=== PATIENT | female | born 1945 | race Caucasian/White ===

== ENCOUNTER 2023-12-30 10:20 | Emergency (ER) | payer MEDICARE, OTHER, SELFPAY ==
[2023-12-30 10:34] VITALS: BP 118/72
--- NOTE | 2023-12-30 11:09 | ED.GENMED ---
History of Present Illness
<Karissa Thompson PA-C - Last Filed: 12/30/23 15:49>
General
Chief Complaint: Dizziness
Source: patient and family
Exam Limitations: none
Time Seen by Provider: 12/30/23 11:09
Nursing documentation reviewed up to this point in time: agreed with
Travel History
Have you had any contact with someone who has COVID-19?: No
Do you have any symptoms of coronavirus? Fever > 100 degrees, chills, cough, shortness of breath, sore throat, loss of taste or smell, muscle aches, or headache?: No
History of Present Illness
History of Present Illness:
78 y/o female with a PMH of HTN, diabetes, gastritis, psoriatic arthritis, presenting to the emergency department today with a bilateral temporal headache, and generalized dizziness for the the past 3 days. Patient states that her symptoms started
on Thursday when she was eating lunch, and she started to develop her headache, and feel nauseous. Patient states that she describes her dizziness as a 'wooziness' and feels that she feels unsteady on her feet when standing and feels like she might
throw up. She denies double vision, lightheadedness, syncopal episodes, falls, ambulatory dysfunction, f/c, chest pain, shortness of breath, back pain. Patient has tried extra strength tylenol and Dramamine for her symptoms without relief. Patient
states that [facility] who sent her home with a muscle relaxant.
Past History
<Karissa Thompson PA-C - Last Filed: 12/30/23 15:49>
Past History
ED Past Medical History: HTN and NIDDM
Social History
Tobacco: Non-smoker
Alcohol: None
Drug: None
Personal:
Living: with family
Employment: Other
Family History
Family History: Hypertension
Review of Systems
<Karissa Thompson PA-C - Last Filed: 12/30/23 15:49>
Review of Systems
All Other Systems: ROS reviewed and negative except as documented in HPI and ROS
Phy Exam
<Karissa Thompson PA-C - Last Filed: 12/30/23 15:49>
Physical Exam
Physical Exam:
General: Patient is well-appearing in no acute distress
Course
<Karissa Thompson PA-C - Last Filed: 12/30/23 15:49>
Orders/Labs/Results
Orders:
Orders
12/30/23 12:10
C-Reactive Protein Urgent
Comment: ADD ON
Complete Blood Count/With Diff Urgent
Comprehensive Metabolic Panel Urgent
Erythrocyte Sed Rate Urgent
Comment: ADD ON
12/30/23 12:20
CT Head W/o Iv Contrast Urgent
Comment:
Reason For Exam: headache, dizziness
12/30/23 12:38
0.9% Sodium Chloride 250 ml [Nss] 250 ml IV BOLUS
12/30/23 12:53
Add On- LAB Urgent
Tests Added?: CRP
12/30/23 13:01
0.9% Sodium Chloride 500 ml [Nss] 500 ml IV BOLUS
12/30/23 13:57
Add On- LAB Urgent
Tests Added?: ESR
Abnormal Lab Results
12/30/23
12:10
WBC 3.9 L 10^3/uL
(4.8-10.8)
RDW 15.9 H %
(11.5-14.5)
Absolute Lymphs (auto) 0.3 L 10^3/uL
(1.2-3.4)
Neutrophils % 78.8 H %
(42.2-75.2)
Lymphocytes % 8.0 L %
(20.5-51.1)
Creatinine 0.5 L mg/dL
(0.6-1.0)
Glucose 131 H mg/dl
(70-99)
C-Reactive Protein 62.40 H mg/L
(0.0-10.00)
12/30/23 12:10
12/30/23 12:10
Vital Signs
Initial and Last Documented VS:
Initial Vital Signs
Temp Pulse Resp BP Pulse Ox
98.2 F 83 16 118/72 98
12/30/23 10:34 12/30/23 10:34 12/30/23 10:34 12/30/23 10:34 12/30/23 10:34
Last Documented Vital Signs
Temp Pulse Resp BP Pulse Ox
98.2 F 76 14 108/65 97
12/30/23 10:34 12/30/23 14:45 12/30/23 14:45 12/30/23 14:00 12/30/23 14:45
<Jose Valdez, DO - Last Filed: 12/30/23 14:16>
Orders/Labs/Results
Orders:
Orders
12/30/23 12:10
C-Reactive Protein Urgent
Comment: ADD ON
Complete Blood Count/With Diff Urgent
Comprehensive Metabolic Panel Urgent
Erythrocyte Sed Rate Urgent
Comment: ADD ON
12/30/23 12:20
CT Head W/o Iv Contrast Urgent
Comment:
Reason For Exam: headache, dizziness
12/30/23 12:38
0.9% Sodium Chloride 250 ml [Nss] 250 ml IV BOLUS
12/30/23 12:53
Add On- LAB Urgent
Tests Added?: CRP
12/30/23 13:01
0.9% Sodium Chloride 500 ml [Nss] 500 ml IV BOLUS
12/30/23 13:57
Add On- LAB Urgent
Tests Added?: ESR
Abnormal Lab Results
12/30/23
12:10
WBC 3.9 L 10^3/uL
(4.8-10.8)
RDW 15.9 H %
(11.5-14.5)
Absolute Lymphs (auto) 0.3 L 10^3/uL
(1.2-3.4)
Neutrophils % 78.8 H %
(42.2-75.2)
Lymphocytes % 8.0 L %
(20.5-51.1)
Creatinine 0.5 L mg/dL
(0.6-1.0)
Glucose 131 H mg/dl
(70-99)
C-Reactive Protein 62.40 H mg/L
(0.0-10.00)
12/30/23 12:10
12/30/23 12:10
Vital Signs
Initial and Last Documented VS:
Initial Vital Signs
Temp Pulse Resp BP Pulse Ox
98.2 F 83 16 118/72 98
12/30/23 10:34 12/30/23 10:34 12/30/23 10:34 12/30/23 10:34 12/30/23 10:34
Last Documented Vital Signs
Temp Pulse Resp BP Pulse Ox
98.2 F 76 14 108/65 97
12/30/23 10:34 12/30/23 14:45 12/30/23 14:45 12/30/23 14:00 12/30/23 14:45
Clivelt;Karissa Thompson PA-C - Last Filed: 12/30/23 15:49>
MDM/Problems Addressed
Differential Diagnosis Includes:
Differentials include giant cell arteritis, tension headache, migraine headache, CVA, ocular migraine
MDM/Problems Addressed:
headache dizziness
Chronic conditions affecting care: DM, HTN and Other (psoriatic arthritis)
Acute Exacerbation and/or Progression of Chronic Illness: HTN
<Karissa Thompson PA-C - Last Filed: 12/30/23 15:49>
*Pulse Oximetry
Patient hypoxic: no
*Critical Care Note
Total Time (30-74mins, 75-104mins- exclusive of procedures): Not Applicable
Data Reviewed
Review of Other/Old Records Reveals: Records (Reviewed ER physician documentation from 11/17/2016) and Discharge Summary (no recent discharge summaries to review)
Source: patient and records
Prescriptions/Medications Considered But Not Given:
considered medication for pain control however patient states that she feels comfortable at this time and she feels more comfortable with fluids
<Karissa Thompson PA-C - Last Filed: 12/30/23 15:49>
Patient Management
Escalation/DeEscalation of care consider admission/obs:
Patient 78-year-old female with past medical history of diabetes, hypertension, psoriatic arthritis to the emergency department today with a bilateral temporal headache, and generalized dizziness for the the past 3 days. On exam, she does have
tenderness over the temporal artery region that she has no visual changes, no jaw pain. Her neurological exam is unremarkable. Her CBC and CMP were unremarkable. Her C-reactive protein is 62.40, raising concern for transfemoral arteries. Her ESR
is pending. I spoke to rheumatology she supply chain consultant rn observation via [facility] text who recommended to start patient on 6 mg of prednisone once daily and follow-up with vascular in 1 week to have a temporal artery biopsy and reassess. Patient is aware of
plan, she is medically stable for discharge.
ED Attending Note
<Karissa Thompson PA-C - Last Filed: 12/30/23 15:49>
-
Portions of this chart may have been created with voice recognition software.� Occasional wrong word or��sound alike� substitutions may have occurred due to the inherent limitations of voice recognition software.
<Jose Valdez DO - Last Filed: 12/30/23 14:16>
ED Attending Note
Patient seen and examined by attending physician: Yes
I performed the substantive portion of visit, reviewed & personally made and approve the management plan that is documented in note by myself or BRODY.: Yes
I performed a history and physical exam of patient and discussed management with resident, I reviewed resident's note and agree with documented findings and plan of care.: Yes
ED Attending Note:
I evaluated patient at bedside. The patient is currently well-appearing. She does feel somewhat improved after fluids were given. She does have some tenderness in the bitemporal region as well as discomfort in the forehead. Therefore C-reactive
protein and sed rate were obtainedHer C-reactive protein is elevated however the patient does have a history of psoriatic arthritis. CT imaging unremarkable.
Discharge Plan
Departure
Patient Disposition: Home (Routine Discharge)
Date of Disposition: 12/30/23
Time of Disposition: 14:41
Patient with high blood pressure during this ER visit?: No
Condition: Good
Discharge Problem:
Temporal headache
Instructions: Headache, Adult, Dizziness, Nonvertigo, (DC)
Prescriptions:
New
prednisone 20 mg tablet
60 mg PO DAILY Qty: 30 0RF
No Action
diphenhydramine HCl [Banophen] 25 MG capsule
25 mg PO .Q4-6HPRN PRN (Reason: itching) Qty: 20 0RF
prednisone 50 MG tablet
50 mg PO DAILY 5 Days 0RF
epinephrine [EpiPen] 0.3 MG/0.3/SYRINGE auto-injector
0.3 mg IM PRN PRN (Reason: severe allergic reaction) Qty: 1 0RF
Referrals:
Brad Sahu MD [Family Provider] -
Hernandez Coppola MD [Active] - Call in 1-3 days for appt
Activity Restrictions/Additional Instructions:
Please call [phone] for an appointment. I have forwarded your information to the vascular physician's office.
We have sent Prednisone to your pharmacy. Please take 3 tablets daily (for a total of 60 mg per day) until you see the vascular physician who will make decision on when to wean steroids.
Please follow up with your primary care provider, please return to the emergency department for any concerns.
Interventions
Interventions:
*Risk Screen - Suicide Last Done: 12/30/23 12:14
*General Assessment Last Done: 12/30/23 12:14
*Neglect/Abuse Screening Last Done: 12/30/23 12:14
ED- Fall Risk Assessment Last Done: 12/30/23 14:58
*ED COVID-19 Vaccine History Last Done: 12/30/23 10:34
*Nursing Disposition Last Done: 12/30/23 14:58
ED- Neurological Assessment Last Done: 12/30/23 12:13
ED- Cardiac Assessment Last Done: 12/30/23 14:58
ED Swallowing Screen Last Done: 12/30/23 12:13
Discharge Date and Time
Discharge Date/Time: 12/30/23 15:05
[2023-12-30 12:04] VITALS: BP 120/75
[2023-12-30 12:19] LABS: % Basophils 0.5 % (0-2); % Eosinophils 4.4 % (0-6); % Immature Granulocytes 0.5 % (0-0.5); % Monocytes 7.8 % (1.7-9.3); % Neutrophils 78.8 % (42.2-75.2); Absolute Eosinophils 0.2 10^3/uL (0-0.7); Absolute Lymphocytes 0.3 10^3/uL (1.2-3.4); Absolute Monocytes 0.3 10^3/uL (0.1-0.6); Absolute Neutrophils 3.1 10^3/uL (1.4-6.5); Hematocrit 39.3 % (37.0-47.0); Hemoglobin 13.4 g/dL (12.0-16.0); Mean Corp Hgb Conc. 34.1 g/dL (33.0-37.0); Mean Corpuscular Hgb 29.4 pg (27.0-31.0); Mean Corpuscular Volume 86.2 fL (81.0-99.0); Mean Platelet Volume 9.5 fL (7.4-10.4); Nucleated Red Blood Cells % 0 %; Platelet Count 169 10^3/uL (130-400); Red Blood Cell Count 4.56 10^6/uL (4.20-5.40); Red Cell Dist. Width 15.9 % (11.5-14.5); White Blood Cell Count 3.9 10^3/uL (4.8-10.8)
[2023-12-30 12:36] LABS: ALT (SGPT) 15 U/L (0-35); AST (SGOT) 20 U/L (14-36); Albumin 3.9 g/dl (3.5-5.0); Alkaline Phosphatase 43 U/L (38-126); Blood Urea Nitrogen 14 mg/dl (7-17); Calcium 8.4 mg/dl (8.4-10.2); Carbon Dioxide 26 mmol/L (22-30); Chloride 98 mmol/L (98-107); Glucose 131 mg/dl (70-99); Potassium 3.8 mmol/L (3.5-5.1); Sodium 135 mmol/L (135-145); Total Bilirubin 0.7 mg/dl (0.2-1.3); Total Protein 6.3 g/dl (6.3-8.2); eGFR > 60.00
[2023-12-30 13:00] VITALS: BP 111/62
[2023-12-30] MEDS: NSS 500 IV (13:01)
[2023-12-30 13:55] VITALS: BP 102/71
[2023-12-30 14:00] VITALS: BP 108/65
[2023-12-30 15:27] LABS: Erythrocyte Sed Rate 9 mm/hour (0-20)
== END 2023-12-30 15:05 | disposition home or self-care (01) ==
LOC: EMR 10:20
PROVIDERS: Physician Assistant; EMERGENCY PHYSICIAN Emergency Medicine; FAMILY PHYSICIAN Family Medicine
DX: R51.9 Headache, unspecified (principal); R42 Dizziness and giddiness; R26.81 Unsteadiness on feet; I10 Essential (primary) hypertension; E11.9 Type 2 diabetes mellitus without complications; L40.50 Arthropathic psoriasis, unspecified
CPT/HCPCS: 99284; 96360; 70450; 80053; 85025; 85652; 86140

== ENCOUNTER → 2024-10-10 13:27 | Outpatient (REF) | payer MEDICARE, OTHER, SELFPAY | LOC: HWWDC 13:27 | PROVIDERS: ATTENDING PHYSICIAN Internal Medicine Rheumatology; FAMILY PHYSICIAN Family Medicine; REFERRING PHYSICIAN Obstetrics & Gynecology | DX: Z12.31 Encounter for screening mammogram for malignant neoplasm of breast (principal); M85.89 Other specified disorders of bone density and structure, multiple sites | CPT/HCPCS: 77063; 77067; 77080 ==

== ENCOUNTER → 2025-06-28 16:04 | Outpatient (REF) | payer MEDICARE, OTHER, SELFPAY | LOC: HWRCS 16:04 | PROVIDERS: ATTENDING PHYSICIAN Internal Medicine Cardiovascular Disease; FAMILY PHYSICIAN Family Medicine | DX: R00.2 Palpitations (principal); I35.1 Nonrheumatic aortic (valve) insufficiency | CPT/HCPCS: 93306 ==